=== PATIENT | female | born 1965 | race Caucasian/White ===

== ENCOUNTER 2020-05-03 15:37 | Outpatient (RCR) | payer OTHER, SELFPAY ==
[2012-11-21 17:17] VITALS: BMI 34.4
[2020-05-03] MEDS: COVID-19 VACC, MRNA(PFIZER)/PF 30 MCG/0.3 ML SYRINGE IM (12:42)
[2020-05-24] MEDS: COVID-19 VACC, MRNA(PFIZER)/PF 30 MCG/0.3 ML SYRINGE IM (12:33)
== END 2020-05-03 23:59 ==
LOC: IMMUN 15:37
PROVIDERS: PCP Family Medicine; Visit Provider Family Medicine
DX: Z23 Encounter for immunization (principal)
CPT/HCPCS: 0001A; 0002A; 91300